=== PATIENT | female | born 1980 | race Caucasian/White ===

== ENCOUNTER 2020-07-01 23:12 | Emergency (ER) | payer OTHER, MEDICAID, SELFPAY ==
--- NOTE | ~2020-07-01 | CT_ITS ---
EXAMINATION: CT brain wo con DATE: 07/01/2020 23:42 INDICATION: Headache. Prior pituitary tumor resection. TECHNIQUE: Computed tomography (CT) of the head was performed without intravenous contrast. Sagittal and coronal reconstructions were performed. The mA was adjusted according to patient size. Iterative reconstruction technique was employed. The dose-length product was 605.33 mGy-cm. COMPARISON: None FINDINGS: No acute intracranial hemorrhage, acute infarction or abnormal extra axial fluid collection. Ventricl es are normal and symmetric. No mass/mass effect. Postoperative changes consistent with reported hist ory of prior pituitary tumor resection via transsphenoidal approach with resection of portion of the posterior nasal septum, bilateral posterior ethmoidal septations, anterior wall of the sphenoid sinus and floor of the sella turcica with fat packing at the posterior aspect of the sphenoid sinus. There is mucosal thickening in the sphenoid, ethmoid and maxillary sinuses, left greater than right. The o rbits and mastoid air cells are normal. IMPRESSION: 1. No acute intracranial process. 2. Postoperative changes consistent with prior transsphenoidal pituitary surgery for reported pituita ry tumor resection. Reviewed, dictated and finalized at location [facility] IMPRESSION: 1. No acute intracranial process. 2. Postoperative changes consistent with prior transsphenoidal pituitary surger y for reported pituitary tumor resection.
--- NOTE | ~2020-07-01 | XR_ITS ---
EXAMINATION: XR chest 2V DATE: 07/01/2020 23:54 INDICATION: Chest pain TECHNIQUE: PA and lateral views of the chest were obtained. COMPARISON: None FINDINGS: The lungs are clear with no focal airspace opacities, pulmonary edema, pleural effusion or pneumothor ax. The cardiomediastinal silhouette is normal. Cholecystectomy clips in the right upper quadrant. Mi ld thoracic spondylosis. IMPRESSION: 1. No acute cardiopulmonary disease. Reviewed, dictated and finalized at location [facility]
[2020-07-01 23:13] VITALS: BP 122/87; PULSE 112; RESP 17; O2SAT 97
--- NOTE | 2020-07-01 23:17 | ED.CHESTPAIN ---
HPI - Chest Pain General Chief Complaint: Chest Pain Stated Complaint: chest pain Time Seen by Provider: 07/01/20 23:17 Source: patient and EMS Mode of arrival: EMS Limitations: no limitations History of Present Illness HPI narrative: Patient is a 39-year-old female with a history of seizure disorder, pituitary resection, hypothyroidism, who presents for evaluation of chest pain. Patient states that she has been drinking hard alcohol, beer, wine this evening, was dancing in her living room, when she laid down to rest and suddenly felt acute onset chest tightness. Pain was over the center of her chest without radiation to the back, shoulders, jaw. Patient currently has associated headache and some mild nausea. She states her chest pain has been constant. She states it improves when she presses on her chest. No change with positioning. No associated cough or shortness of breath. No recent fever, chills or illnesses. Patient takes oral estrogen replacement since she had a history of pituitary resection. She denies any current vision changes. No history of DVT. Patient states she started to feel very panic which made her anxiety increased. She does have a history of anxiety. Patient's fianc? called EMS to bring her to the emergency department, she was noted to have a glucose of 40 and was given dextrose replacement. Repeat glucose at this facility is 67. Related Data Allergies Allergy/AdvReac Type Severity Reaction Status Date / Time No Known Allergies Allergy Unverified 12/30/18 04:51 Review of Systems Review of Systems: Narrative: CONSTITUTIONAL: Denies fever, chills, or sweats. EYES: Denies visual changes, redness, or discharge. ENT: Denies rhinorrhea, congestion, sore throat, or otalgia. CARDIOVASCULAR: Reports chest pain without palpitations or edema RESPIRATORY: Denies cough or dyspnea. GASTROINTESTINAL: Denies abdominal pain, nausea without vomiting GENITOURINARY: Denies dysuria or hematuria. SKIN: Denies rash or itching. MUSCULOSKELETAL: Denies back pain, joint pain, or myalgia. NEUROLOGIC: Headache without numbness or weakness PMF Past Medical History Medical History Anxiety Depression Hypertension Hypothyroidism Migraine Seizure Social History Social History (Updated 07/01/20 @ 23:32 by Mary Azevedo MD) Smoking status: Current every day smoker Alcohol intake: current Substance use: never Living arrangements: with family Gender identity (if verbalized by the patient): Female Exam Narrative: Exam Narrative: GENERAL: Awake, alert, conversant, tearful HEAD: Normocephalic, atraumatic. EYES: PERRLA and EOMI. ENT: Nares clear, no rhinorrhea or epistaxis. Mucous membranes moist. NECK: Supple. CHEST: No respiratory distress, breathing even and non labored, no chest wall tenderness HEART: Regular rate, sinus rhythm, no murmur ABDOMEN:Non distended, non tender EXTREMITIES: Normal range of motion. No edema. SKIN: Warm, dry, no rash. NEURO:No focal deficits. Alert and oriented x3 Psych: Reports anxiety Course Vital Signs Vital signs: Vital Signs Pulse Rate 112 H 07/01/20 23:13 Respiratory Rate 17 07/01/20 23:13 Blood Pressure 122/87 07/01/20 23:13 Pulse Oximetry 97 07/01/20 23:13 Pulse Rate 84 07/02/20 02:32 Respiratory Rate 13 07/02/20 02:32 Blood Pressure 111/83 07/02/20 02:32 Pulse Oximetry 98 07/02/20 02:32 MDM - Chest Pain MDM Narrative Medical decision making narrative: Patient presented for the evaluation of chest pain, headache, general malaise after drinking alcohol this evening. Patient's EKG and labs are without significant high risk changes. Cardiac risk factors reviewed. Patient is felt low risk for ACS and reasonable for further risk stratification testing as an outpatient. Patient has no signs or symptoms of adrenal crisis or adrenal insufficiency. As far as the patient's chest pain, th
[2020-07-01 23:19] LABS: Glucose Point of Care 67 (65-105)
--- NOTE | 2020-07-01 23:19 | ECG_ITS ---
Measurements Intervals [place] Rate: 103 P: 63 WA: 163 QRS: 42 QRSD: 90 T: 64 QT: 348 QTc: 456 Interpretive Statements SINUS TACHYCARDIA POSSIBLE LEFT ATRIAL ENLARGEMENT INCOMPLETE RIGHT BUNDLE BRANCH BLOCK BORDERLINE ECG Electronically Signed On 07-02-2020 8:42:33 CLIENT SERVICES ASSOCIATE by Dominick Dinh D.O.
[2020-07-01] MEDS: ONDANSETRON INJ 4 MG/2 ML VIAL IV PUSH (23:31)
[2020-07-01] MEDS: ASPIRIN 81 MG CHEWABLE TABLET 324 MG PO (23:32)
[2020-07-01] MEDS: MORPHINE SULFATE (*CRX) 2 MG/ML INJ IV PUSH (23:32)
[2020-07-01 23:34] LABS: Basophils Absolute Auto 0.1 K/mm3 (0.0-0.1); Basophils Percent Auto 0.8 % (0.2-1.2); Eosinophils Absolute Auto 0.2 K/mm3 (0-0.3); Eosinophils Percent Auto 2.3 % (0-4.4); Hematocrit 38.3 % (37.0-47.0); Hemoglobin 12.6 g/dL (12.0-15.0); Immature Granulocyte Absolute 0.04 K/mm3 (0.00-0.031); Immature Granulocyte Percent A 0.4 % (0-0.5); Lymphocytes Absolute Auto 3.37 K/mm3 (0.9-3.2); Lymphocytes Percent Auto 33.1 % (18.3-44.2); Mean Corpuscular HGB Conc 32.9 g/dl (32-36); Mean Corpuscular Hemoglobin 31.5 pg (26-34); Mean Corpuscular Volume 95.8 fl (80-100); Mean Platelet Volume 10.4 fl (7.4-10.4); Monocytes Absolute Auto 0.8 K/mm3 (0.1-0.6); Monocytes Percent Auto 7.9 % (2.6-8.5); Neutrophils Absolute Auto 5.7 K/mm3 (1.3-6.7); Neutrophils Percent Auto 55.5 % (45.5-73.1); Platelet Count Result 262 k/mm3 (150-375); Red Cell Distribution Width 12.9 % (11.5-14.5); White Blood Count 10.2 K/mm3 (4.5-10.0)
[2020-07-01 23:37] VITALS: PULSE 111; O2SAT 97
[2020-07-01 23:49] LABS: INR 0.8
[2020-07-01 23:51] LABS: Anion Gap 10 mmol/L (8-16); Blood Urea Nitrogen 10 mg/dL (7-17); Calcium 8.5 mg/dL (8.4-10.2); Carbon Dioxide 22 mmol/L (22-30); Chloride 113 mmol/L (98-107); Estimated CRCL calculation 70 ml/min; Estimated Glomerular Filt Rate > 60; Glucose 66 mg/dL (65-105); Potassium 3.7 mmol/L (3.4-5.0); Sodium 145 mmol/L (137-145)
[2020-07-01 23:54] LABS: D Dimer 0.27 ug/mL (<0.48)
[2020-07-02 00:03] LABS: Troponin I < 0.012 ng/mL (0.000-0.034)
[2020-07-02 00:12] LABS: Ethanol 217 mg/dL (<10)
[2020-07-02 00:22] VITALS: BP 141/101; PULSE 84; RESP 19; O2SAT 99
[2020-07-02] MEDS: KETOROLAC 30 MG/ML VIAL (*BKC) IV PUSH (01:06)
[2020-07-02 01:30] VITALS: BP 109/79; PULSE 82; RESP 16; O2SAT 97
[2020-07-02 02:32] VITALS: BP 111/83; PULSE 84; RESP 13; O2SAT 98
[2020-07-02 02:49] LABS: Troponin I < 0.012 ng/mL (0.000-0.034)
[2020-07-02 03:03] VITALS: BP 111/83; PULSE 75; RESP 17; TEMP 36.6; O2SAT 96
== END 2020-07-02 03:05 | disposition home or self-care (01) ==
PROVIDERS: Emergency Provider Emergency Medicine; PCP Family Medicine
DX: R07.89 Other chest pain (principal); G40.909 Epilepsy, unspecified, not intractable, without status epilepticus; E03.9 Hypothyroidism, unspecified; I10 Essential (primary) hypertension; E89.3 Postprocedural hypopituitarism; F17.200 Nicotine dependence, unspecified, uncomplicated
CPT/HCPCS: 36415; 70450; 71046; 80048; 80307; 82948; 84484; 85025; 85380; 85610; 85730; 93005; 96374; 96375; 99284; A9270; J1885; J2270; J2405

== ENCOUNTER 2020-08-07 10:45 | Emergency (ER) | payer OTHER, MEDICAID, SELFPAY ==
[2020-08-07 11:07] VITALS: BP 144/90; PULSE 86; RESP 18; TEMP 36.4; O2SAT 98
--- NOTE | 2020-08-07 12:19 | ED.WOUNDLAC ---
HPI - Wound/Laceration General Chief Complaint: Wound/Laceration Stated Complaint: thumb slice by broken glass Time Seen by Provider: 08/07/20 12:06 History of Present Illness HPI narrative: 39 yo female w/ h/o adrenal insufficiency presents to the ED for a hand laceration. She was washing dishes when she broken a glass and sustained a laceration the dorsal base of the right thumb. Mild pain. Additionally she reports feeling dizzy and somewhat shaky. Related Data Allergies Allergy/AdvReac Type Severity Reaction Status Date / Time No Known Allergies Allergy Unverified 07/04/20 10:07 Review of Systems Review of Systems: All systems reviewed & are unremarkable except as noted in HPI and below Constitutional: Constitutional: Denies fever(s) ENT: Reports dizziness Respiratory: Respiratory: Denies dyspnea Gastrointestinal: Gastrointestinal: Denies nausea Neurologic: Denies numbness and Denies weakness Psychiatric: Psychiatric: Reports anxiety PMFSH Past Medical History Medical History Anxiety Depression Hypertension Hypothyroidism Migraine Seizure Social History Social History Smoking status: Current every day smoker Alcohol intake: current Substance use: never Gender identity (if verbalized by the patient): Female Exam Const: General: healthy appearing, no acute distress and alert Orientation/consciousness: patient oriented x3 HENMT: Head: normal to inspection Resp: Effort & Inspection: normal respiratory effort Auscultation: clear to auscultation bilaterally Cardio: Rate: regular rate Rhythm: regular rhythm Other: 2 + right radial Neuro: General: patient oriented x3, moves all extremities, no focal motor deficits and CN's II-XI intact bilaterally Speech: normal speech Extrem: Other: 4 cm laceration to the dorsim of the right hand near the base of the thumb. No foreign body Psych: Affect: Anxious affect present Course Vital Signs Vital signs: Vital Signs Temperature 36.4 C 08/07/20 11:07 Pulse Rate 86 08/07/20 11:07 Respiratory Rate 18 08/07/20 11:07 Blood Pressure 144/90 H 08/07/20 11:07 Pulse Oximetry 98 08/07/20 11:07 Temperature 36.4 C 08/07/20 11:07 Pulse Rate 86 08/07/20 11:07 Respiratory Rate 18 08/07/20 11:07 Blood Pressure 144/90 H 08/07/20 11:07 Pulse Oximetry 98 08/07/20 11:07 Procedures Laceration Laceration 1: Date: 08/07/20 Time: 20:15 Site: hand Side (If applicable): right Size (cm): 4 Description: linear Depth: simple, single layer Amount of anesthesia used (mL): 3 Pre-repair: wound explored and irrigated extensively ====== Skin Level ====== Skin layer closed with: nylon Size (cm): 5-0 Number of sutures: 4 Technique: horizontal mattress ====== Subcutaneous Layer ====== ====== Muscle Layer ====== ====== Tendon Layer ====== Discharge Plan Discharge Clinical Impression: Hand laceration Qualifiers: Encounter type: initial encounter Foreign body presence: without foreign body Laterality: right Qualified Code(s): S61.411A - Laceration without foreign body of right hand, initial encounter Patient Disposition: Home, Self-Care Condition: Stable Instructions: Laceration (ED) Additional Instructions: Follow-up for suture removal in 10-14 days Follow-up/Referrals: Jatinder,MD Yuriy [Primary Care Provider] -
== END 2020-08-07 13:59 | disposition home or self-care (01) ==
PROVIDERS: Emergency Provider Emergency Medicine; PCP Family Medicine
DX: S61.011A Laceration without foreign body of right thumb without damage to nail, initial encounter (principal); F17.200 Nicotine dependence, unspecified, uncomplicated; W25.XXXA Contact with sharp glass, initial encounter; Y93.G1 Activity, food preparation and clean up
CPT/HCPCS: 12002; 99282

== ENCOUNTER 2021-09-20 20:54 | Emergency (ER) | payer OTHER, MEDICAID, SELFPAY ==
[2021-09-20 20:55] VITALS: BP 182/129; PULSE 117; RESP 20; TEMP 36.2; O2SAT 97
--- NOTE | 2021-09-20 21:19 | PC.NURSE ---
Per VEHICLE BODY MAKERESTRELLITA Walker, pt requires sitter d/t SI and overdose prior to arrival.
--- NOTE | 2021-09-20 21:20 | ED.GENADULT ---
HPI - General Adult General Chief complaint: Overdose Stated complaint: overdose; took 12 25mg Benadryl Time Seen by Provider: 09/20/21 21:07 History of Present Illness HPI narrative: 40-year-old female presents to the emergency department for evaluation after an intentional overdose of Benadryl. Patient does have a previous psych history for which she has been hospitalized for. Patient states she does not have a current psychiatrist that she follows up with. Patient does admit to drinking alcohol today. Patient states that she did take 12 x 25 mg p.o. Benadryl with the intent to kill herself. Patient told nursing triage that she took these with intent to hurt herself. Patient had told her fianc? that she did this to kill herself. Patient denies any chest pain or shortness of breath. Patient denies any nausea vomiting or diarrhea. Patient does have previous history of adrenal insufficiency. Related Data Home Medications Medication Instructions Recorded Confirmed atorvastatin 09/20/21 bupropion HCl PO 09/20/21 hydrocortisone 09/20/21 losartan 09/20/21 Allergies Allergy/AdvReac Type Severity Reaction Status Date / Time adhesive tape Allergy Blister Verified 09/20/21 21:04 lorazepam [From Ativan] Allergy Hives Verified 09/20/21 21:04 Review of Systems Review of Systems: CONSTITUTIONAL: Denies fever, chills, or sweats. EYES: Denies visual changes, redness, or discharge. ENT: Denies rhinorrhea, congestion, sore throat, or otalgia. CARDIOVASCULAR: Denies chest pain, palpitations, or edema. RESPIRATORY: Denies cough or dyspnea. GASTROINTESTINAL: Denies abdominal pain, nausea, vomiting, or diarrhea. GENITOURINARY: Denies dysuria or hematuria. SKIN: Denies rash or itching. MUSCULOSKELETAL: Denies back pain, joint pain, or myalgia. NEUROLOGIC: Denies headache, numbness, or weakness. PSYCHIATRIC: Does report history of depression PMFSH Past Medical History Medical History Anxiety Depression Hypertension Hypothyroidism Migraine Seizure Social History Social History Smoking status: Current every day smoker Alcohol intake: current Substance use: never Gender identity (if verbalized by the patient): Female Exam Narrative: APPEARANCE: Intoxicated HEAD: normocephalic, atraumatic. EYES: PERRLA/EOMI, conjunctivae clear. NOSE: Normal no drainage THROAT: Pharynx clear, no exudate. NECK: Supple. No adenopathy, no masses. RESPIRATORY: Airway patent, respirations nonlabored. Clear to auscultation bilaterally, no rales, rhonchi, wheezing. CARDIOVASCULAR: Regular rate and rhythm without murmurs rubs or gallops. ABDOMINAL: Soft, nontender, nondistended, normal bowel sounds MUSCULOSKELETAL: Moves all extremities. Strength/ROM intact, No edema, No calf tenderness. NEURO: Alert. Cranial nerves II through XII intact. Good gait. Good coordination SKIN: Warm, dry. Normal Color PSYCHIATRIC: Labile affect. Course Course Emergency Course: Poison control wanted the patient observed for at least 4 hours after ingestion. Patient's blood alcohol was significantly elevated so she had a prolonged observation in the emergency department prior to medical clearance. Patient's blood alcohol is below 80. Patient's counselor was consulted. [facility] counselor is intending to place the patient and inpatient psychiatric treatment. Reevaluation(s) Reevaluation #1: Patient is medically cleared to be evaluated by the crisis counselor. Patient is medically cleared to be discharged from the emergency department and is cleared for inpatient psychiatric placement. Vital Signs Vital signs: Vital Signs Temperature 97.2 F L 09/20/21 20:55 Pulse Rate 117 H 09/20/21 20:55 Respiratory Rate 20 09/20/21 20:55 Blood Pressure 182/129 H 09/20/21 20:55 Pulse Oximetry 97 09/20/21 20:55 Temperature 97.2 F L 09/20/21 20:55
--- NOTE | 2021-09-20 21:26 | PC.NURSE ---
all pt belongings taken by cici out of ED at this time.
[2021-09-20 21:28] VITALS: RESP 12
[2021-09-20 21:38] LABS: Add Urine Microscopic? NO; Appearance Urine Clear (Clear); Bilirubin Urine Negative (Negative); Blood Urine Negative (Negative); Color Urine Colorless (Yellow); Glucose Urine UA Negative (Negative); Ketones Urine Negative (Negative); Leukocyte Esterase Ur Negative LEU/UL (Negative); Nitrate Urine Negative (Negative); Protein Urine Negative (Negative); Specific Grav Ur 1.002 (1.001-1.035); Urobilinogen Urine Negative mg/dL (<2.0)
[2021-09-20 21:39] LABS: Basophils Percent Auto 0.3 % (0.2-1.2); Eosinophils Percent Auto 0.1 % (0-4.4); Hematocrit 43.9 % (37.0-47.0); Hemoglobin 14.3 g/dL (12.0-15.0); Immature Granulocyte Absolute 0.07 K/mm3 (0.00-0.031); Immature Granulocyte Percent A 0.6 % (0-0.5); Lymphocytes Percent Auto 11.3 % (18.3-44.2); Mean Corpuscular HGB Conc 32.6 g/dl (32-36); Mean Corpuscular Hemoglobin 30.6 pg (26-34); Mean Platelet Volume 9.8 fl (7.4-10.4); Monocytes Absolute Auto 0.2 K/mm3 (0.1-0.6); Monocytes Percent Auto 1.9 % (2.6-8.5); Neutrophils Absolute Auto 9.9 K/mm3 (1.3-6.7); Neutrophils Percent Auto 85.8 % (45.5-73.1); Platelet Count Result 340 k/mm3 (150-375); Red Blood Count 4.67 M/mm3 (4.2-5.4); Red Cell Distribution Width 13.8 % (11.5-14.5); White Blood Count 11.5 K/mm3 (4.5-10.0)
--- NOTE | 2021-09-20 21:40 | PC.NURSE ---
spoke with debbi from poison control at this time. per debbi diphenhydramine peaks in 2-3 hours and has a half life of 5-9 hours. toxic dose for this pt would be 590 mg and from the amount pt reports pt below toxic dose. possible side effects pt could experience: lethargy, dry mouth, paradoxical agitation, tachycardia. per poison control for agitation benzos.
[2021-09-20 21:45] LABS: Alanine Aminotransferase 37 U/L (4-35); Albumin Level 4.7 g/dL (3.5-5.1); Alkaline Phosphatase 80 U/L (38-126); Anion Gap 13 mmol/L (8-16); Aspartate Amino Transferase 32 U/L (14-36); Bilirubin,Total 0.3 mg/dL (0.2-1.3); Blood Urea Nitrogen 12 mg/dL (7-17); Calcium 9.1 mg/dL (8.4-10.2); Carbon Dioxide 22 mmol/L (22-30); Chloride 109 mmol/L (98-107); Estimated CRCL calculation 50 ml/min; Estimated Glomerular Filt Rate 55; Glucose 143 mg/dL (65-110); Potassium 4.2 mmol/L (3.4-5.0); Sodium 144 mmol/L (137-145)
[2021-09-20 21:52] LABS: Amphetamine Screen Urine Negative (Negative); Barbiturate Screen Urine Negative (Negative); Benzodiazepines Screen Urine Negative (Negative); Cannabinoid Screen Urine Positive (Negative); Cocaine Screen Urine Negative (Negative); Methadone Screen Urine Negative (Negative); Opiate Screen Urine Negative (Negative); Phencyclidine Screen Urine Negative (Negative)
[2021-09-20 21:55] LABS: Acetaminophen < 10 ug/mL (10-30); Ethanol 235 mg/dL (<10); Salicylate < 1.0 mg/dL (2-20)
[2021-09-20 22:13] LABS: SARS-CoV-2 RNA PCR Negative
[2021-09-20 23:06] VITALS: BP 132/100; PULSE 90; RESP 13; O2SAT 98
[2021-09-20 23:51] VITALS: BP 129/84; PULSE 87; RESP 16; O2SAT 97
[2021-09-21 01:33] VITALS: BP 126/77; PULSE 106; RESP 18; O2SAT 96
[2021-09-21 02:29] LABS: Ethanol 146 mg/dL (<10)
[2021-09-21 02:45] VITALS: BP 116/84; PULSE 89; RESP 18; O2SAT 97
--- NOTE | 2021-09-21 02:54 | PC.NURSE ---
Per ED MD Leal, pt does not need to be continuously monitored. Will redraw ETOH at 0515 per verbal order from ED MD Leal. Moved from ED H3 to ED 15. Sitter remains at bedside. Pt currently wearing green paper scrubs. Will medically clear once ETOH level 80 or less.
[2021-09-21 05:21] VITALS: BP 147/87; PULSE 63; RESP 19; O2SAT 98
--- NOTE | 2021-09-21 05:30 | PC.NURSE ---
Poison Control called ED to get update on pt's condition - provided by this RN. case closed at this time.
[2021-09-21 05:36] LABS: Ethanol 83 mg/dL (<10)
--- NOTE | 2021-09-21 05:50 | PC.NURSE ---
Per EDP Dr. Leal pt is medically cleared at this time.
--- NOTE | 2021-09-21 05:53 | PC.NURSE ---
[facility] contacted and will be out to evaluate pt.
--- NOTE | 2021-09-21 07:21 | PC.NURSE ---
[facility] called and they said they will have to call back later if they have a bed.
[2021-09-21 07:27] LABS: Ethanol 38 mg/dL (<10)
--- NOTE | 2021-09-21 07:53 | PC.NURSE ---
community organizer faxed pt facesheet to [facility]. admin secretary faxed at [phone]
[2021-09-21 08:00] VITALS: BP 142/107; PULSE 84; RESP 16; O2SAT 97
--- NOTE | 2021-09-21 08:04 | PC.NURSE ---
[facility] made contact with community engagement manager to fax pt facesheet. community engagement manager faxed at [phone]
[2021-09-21] MEDS: HYDROCORTISONE 10 MG TABLET PO (08:17)
[2021-09-21] MEDS: FLUDROCORTISONE ACETATE 0.1 MG TABLET PO (08:17)
--- NOTE | 2021-09-21 09:10 | PC.NURSE ---
@ [phone] dip unit operator faxed pt chart to [facility]
[2021-09-21 14:09] VITALS: BP 149/109; PULSE 94; RESP 17; TEMP 36.5; O2SAT 98
--- NOTE | 2021-09-21 14:13 | PC.NURSE ---
made contact with [place] [facility] to transfer pt to [facility]. eta [phone]
--- NOTE | 2021-09-21 15:48 | PC.NURSE ---
kelly has arrived and is aware that pt is going to [facility]
== END 2021-09-21 16:00 ==
PROVIDERS: Emergency Provider Emergency Medicine; PCP Family Medicine
DX: T45.0X2A Poisoning by antiallergic and antiemetic drugs, intentional self-harm, initial encounter (principal); T51.92XA Toxic effect of unspecified alcohol, intentional self-harm, initial encounter; Z20.822 Contact with and (suspected) exposure to COVID-19; F41.9 Anxiety disorder, unspecified; F32.A Depression, unspecified; I10 Essential (primary) hypertension; E03.9 Hypothyroidism, unspecified; F17.200 Nicotine dependence, unspecified, uncomplicated
CPT/HCPCS: 36415; 80053; 80307; 81003; 81025; 84443; 85025; 99285; A9270; C9803; U0003; U0005

== ENCOUNTER 2024-03-26 06:49 | Observation (INO) | payer OTHER, MEDICAID, SELFPAY ==
[2024-03-26] VITALS (14 sets, daily range): BP systolic 119–175; BP diastolic 62–92; PULSE 60–107; RESP 12–19; TEMP 36.6–37.1; O2SAT 98–100; BMI 23.6
--- NOTE | 2024-03-26 | ECHO_ITS ---
Patient Info Name: Ana Maria Alvarez Age: 43 years : 1980 Gender: Female Ht: 68 in Wt: 155 lbs BSA: 1.84 m2 HR: 61 bpm BP: 136 / 87 mmHg Heart Rhythm: Sinus Rhythm Technical Quality: Good Exam Date: 03/26/2024 3:09 PM Exam Location: Echo Lab Patient Status: Outpatient Admit Date: 03/26/2024 Staff Ordering Physician: Rhona Gilmore MD Fretted Instrument Maker Hand: Jocelyn Genao RDCS Attending Provider: Armando Roa MD Referring Physician: Deirdre KIRKLAND; Exam Type: CA echo dop bubble study w con Study Info Indications - TIA Complete two-dimentional, color flow and Doppler transthoracic echocardiogram is performed with agitated saline and with contrast to opacify the left ventricle and to improve the delineation of the left ventricle endocardial borders. Contrast/Agitated Saline Contrast/Ag. Saline: Definity Amount: 2.00 ml Administered By: Jocelyn Genao RDCS Existing IV Access: Yes IV Access Condition: patent with no signs of infiltration Contrast/Ag. Saline: Agitated Saline Amount: 20.00 ml Administered By: Radha Mejia RDCS Existing IV Access: Yes IV Access Condition: patent with no signs of infiltration Summary 1. Trivial mitral regurgitation. 2. Otherwise unremarkable 2D/Doppler echocardiogram. 3. Saline contrast injection demonstrates no intracardiac shunt. Left Ventricle Left ventricular chamber dimension is normal. Left ventricular systolic function is normal, estimated at 65-70%. The left ventricular diastolic function is normal. Right Ventricle Right ventricular chamber dimension is normal. Left Atria Left atrial chamber dimension is normal. Right Atria Right atrial chamber dimension is normal. Atrial Septum Intact interatrial septum visualized by agitated saline imaging. Aortic Valve The aortic valve is normal. Pulmonic Valve The pulmonic valve is normal. Mitral Valve The mitral valve has normal leaflets. There is trace mitral valve regurgitation. Tricuspid Valve The tricuspid valve leaflets are normal. Pericardium/Pleural The pericardium appears normal. Aorta The aortic root size at the sinus of Valsalva is normal. Left Ventricular Outflow Tract Name Value Normal LVOT 2D LVOT Diameter 2.0 cm LVOT Doppler LVOT Peak Gradient 5 mmHg LVOT Mean Gradient 2 mmHg LVOT VTI 24 cm LVOT VTI/AV VTI Ratio 0.9 LVOT Stroke Volume 80 ml LVOT CO 4.8 l/min LVOT CI 2.6 l/min/m2 Pulmonic Valve Name Value Normal RVOT Doppler RVOT Peak Gradient 3 mmHg PV Doppler PV Peak Gradient 5 mmHg M
--- NOTE | ~2024-03-26 | XR_ITS ---
EXAMINATION: XR chest 1V DATE: 03/26/2024 07:12 INDICATION: Cerebrovascular accident. TECHNIQUE: A single frontal view of the chest was obtained. COMPARISON: Chest single view 02/09/2024 FINDINGS: There is no pneumonia, pleural effusion, or pneumothorax. The heart size is normal. Surgica l clips in the right upper quadrant are likely from cholecystectomy. IMPRESSION: 1. No acute cardiopulmonary disease. Reviewed, dictated and finalized at location A.
--- NOTE | ~2024-03-26 | MR_ITS ---
EXAMINATION: MR brain/brain stem wo con DATE: 03/26/2024 13:58 INDICATION: Transient ischemic attack. TECHNIQUE: Magnetic resonance imaging (MRI) of the brain and brainstem was performed without intraven ous contrast. COMPARISON: Head CT 03/26/2024 FINDINGS: There is no intracranial hemorrhage, acute infarction, or abnormal intracranial mass lesion . There are 4 foci of increased T2-weighted signal intensity in the cerebral white matter, which is n ormal for age. The ventricles are normal in size. There is extensive mucosal thickening in the parana regino sinuses. The orbits are normal. The mastoid air cells are normal. IMPRESSION: 1. Normal brain. Reviewed, dictated and finalized at location A. IMPRESSION: 1. Normal brain.
--- NOTE | ~2024-03-26 | CT_ITS ---
EXAMINATION: CT brain wo con DATE: 03/26/2024 07:12 INDICATION: Slurred speech. TECHNIQUE: Computed tomography (CT) of the head was performed without intravenous contrast. The mA wa s adjusted according to patient size. Iterative reconstruction technique was employed. The dose-lengt h product was 908.00 mGy-cm. COMPARISON: Head CT 07/01/2020 FINDINGS: There is no intracranial hemorrhage, acute infarction, or abnormal intracranial mass lesion . The ventricles are normal in size. The orbits are normal. There is extensive mucosal thickening in the paranasal sinuses. There are surgical changes of the paranasal sinuses and sella. The mastoid air cells are normal. IMPRESSION: 1. Normal brain. Reviewed, dictated and finalized at location A. IMPRESSION: 1. Normal brain.
--- NOTE | ~2024-03-26 | CT_ITS ---
CTA brain carotid Ordering provider: Rhona Gilmore MD History: . TIA . Comparison: None. Technique: CT angiogram head and neck was performed following timed intravenous injection of contrast . Thin slice axial images and reformatted coronal images were obtained. Three dimensional reformatted images of the brain were also obtained using a [employer] workstation. The dose-length product was 1006 .1 no mass is noted which 1 cough, the mGy-cm. 100 mL Omnipaque 350 was given IV. FINDINGS: HEAD: --ANTERIOR AND MIDDLE CEREBRAL ARTERIES AND BRANCHES: Normal caliber and contour. --INTERNAL CAROTID ARTERIES: Normal caliber and contour. --BASILAR ARTERY AND BRANCHES: Normal caliber and contour. No atheromatous disease. --POSTERIOR CEREBRAL ARTERIES: Normal caliber and contour --POSTERIOR COMMUNICATING ARTERIES: Not visualized which is probably related to congenital absence or small size. --ANEURYSM: None visualized. --BRAIN: Please refer to report of CT head performed the same day. --BONES AND SUPERFICIAL SOFT TISSUES: Please refer to report of CT head performed the same day. --PARANASAL SINUSES AND MASTOIDS: Please refer to report of CT head done the same day. NECK: --RIGHT CERVICAL CAROTID SYSTEM: Normal caliber and contour. Percent stenosis per NASCET criteria is 0%. No carotid dissection. Otherwise, no significant atheromatous disease or stenosis of the cervica l carotid system. --LEFT CERVICAL CAROTID SYSTEM: Normal caliber and contour. Percent stenosis per NASCET criteria is 0%. No carotid dissection. Otherwise, no significant atheromatous disease or stenosis of the cervical carotid system. --VERTEBRAL ARTERIES: Normal caliber and contour. --VISUALIZED AORTIC ARCH AND BRANCHING VESSELS: Normal caliber and contour. No significant atheromato us disease. --SOFT TISSUES: Normal. --CERVICAL SPINE: Normal. IMPRESSION: 1. Normal CTA head and neck. Percent stenosis per NASCET criteria is 0%. Reviewed, dictated and finalized at location A.
--- NOTE | 2024-03-26 06:54 | ECG_ITS ---
Test Date: 2024-03-26 07:18:27 Measurements Intervals [place] Rate: 78 P: 46 NV: 153 QRS: 26 QRSD: 94 T: 54 QT: 400 QTc: 456 Interpretive Statements SINUS RHYTHM NORMAL ELECTROCARDIOGRAM No previous ECG available for comparison Electronically Signed On 03-26-2024 12:30:52 CDT by Slaas Miramontes M.D.
[2024-03-26 07:21] LABS: Glucose Point of Care 108 mg/dl (65-105)
--- NOTE | 2024-03-26 07:35 | ED.NEUROSD ---
HPI - Neuro Symptoms/Deficit General Chief Complaint: Neuro Symptoms/Deficit Stated Complaint: slurred speech Time Seen by Provider: 03/26/24 07:26 History of Present Illness HPI Narrative: Pt presents after having spell of having difficulty coming up with words. Pt felt normal when she went to bed last night. Pt felt strange when she woke up at 0330 but got ready for work and came in. 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 Pt has had a REYNA for a few days. Pt also noted bight prism forms when trying to lood at computer screen. This and her speach difficlties have resolved. Pt still has the REYNA. Pt never had any weakness or numbness but has had some cramping in hands and feet. Related Data Home Medications Medication Instructions Recorded Confirmed atorvastatin 20 mg tablet 20 mg PO QHS 09/20/21 03/26/24 hydrocortisone 5 mg tablet 15 mg PO QAM 09/20/21 03/26/24 losartan 50 mg tablet 50 mg PO Q12H 09/20/21 03/26/24 hydrocortisone 5 mg tablet 5 mg PO QHS 09/21/21 03/26/24 bupropion HCl 150 mg 24 hr tablet, 150 mg PO QHS 03/26/24 03/26/24 extended release desmopressin 0.1 mg tablet 0.1 mg PO Q12H 03/26/24 03/26/24 dexamethasone sodium phosphate 4 4 mg IM ONCE PRN Allergic Reaction 03/26/24 03/26/24 mg/mL injection solution dextroamphetamine-amphetamine 20 See Rx Instructions .Route .COMPLEX 03/26/24 03/26/24 mg tablet estradiol 2 mg tablet 2 mg PO QAM 03/26/24 03/26/24 fludrocortisone 0.1 mg tablet 0.1 mg PO QAM 03/26/24 03/26/24 levothyroxine 88 mcg tablet 100 mcg PO QAM 03/26/24 03/26/24 lorazepam 0.5 mg tablet 0.5 mg PO TID PRN Anxiety 03/26/24 03/26/24 ondansetron 4 mg disintegrating 4 mg PO Q6H 03/26/24 03/26/24 tablet progesterone micronized 100 mg 100 mg PO QAM 03/26/24 03/26/24 capsule quetiapine 100 mg tablet 150 mg PO QHS 03/26/24 03/26/24 Allergies Allergy/AdvReac Type Severity Reaction Status Date / Time adhesive tape Allergy Blister Verified 03/26/24 07:18 chlorhexidine Allergy Hives Verified 03/26/24 07:18 prochlorperazine Allergy Unknown Verified 03/26/24 07:18 [From Compazine] Review of Systems Review of Systems: All systems reviewed & are unremarkable except as noted in HPI and below PMFSH Past Medical History Medical History Anxiety Depression Hypertension Hypothyroidism Migraine Seizure Social History Social History Smoking status: Current every day smoker Tobacco type: e-cigarettes/vaping Alcohol intake: current Substance use: never Do You Feel Safe in your Home?: Yes Lack of Transportation: No Lack of Food: Never True Current Housing: I Have Housing Concerned About Future Housing: No Difficulty Paying Gas/Electric Bills: No Difficulty Paying for Meds: No Currently Unemployed: No Education: Associate Degree Difficulty w/ Childcare or Family Care: No Living arrangements: with family Gender identity (if verbalized by the patient): Female Spiritual care concerns: No Exam Const: General: healthy appearing and no acute distress Nutritional Appearance: well nourished Orientation/consciousness: patient oriented x3 Limitations: no limitations HENMT: Head: normal to inspection Mouth: Yes Normal oral and palatal mucosa present Teeth and gingiva: dentition normal Throat: posterior oropharynx normal Eyes: Conjunctivae: conjunctivae normal Pupils: Equal, round and reactive pupils present EOM: EOMs intact bilaterally Direct Ophthalmoscopy: no photophobia Neck: Neck: normal visual inspection and no lymphadenopathy Resp: Effort & Inspection: normal respiratory effort Auscultation: clear to auscultation bilaterally Cardio: Rate: regular rate Rhythm: regular rhythm GI: Inspection: distended GI Palp: Yes Soft to palpation Auscultation: normal bowel sounds Rectal Exam: normal sphincter
[2024-03-26 07:42] LABS: Basophils Absolute Auto 0.1 K/mm3 (0.0-0.1); Basophils Percent Auto 0.8 % (0.2-1.2); Eosinophils Absolute Auto 0.2 K/mm3 (0-0.3); Eosinophils Percent Auto 1.7 % (0-4.4); Hematocrit 36.4 % (37.0-47.0); Hemoglobin 11.3 g/dL (12.0-15.0); Immature Granulocyte Absolute 0.03 K/mm3 (0.00-0.031); Immature Granulocyte Percent A 0.3 % (0-0.5); Lymphocytes Absolute Auto 1.58 K/mm3 (0.9-3.2); Lymphocytes Percent Auto 17.7 % (18.3-44.2); Mean Corpuscular Hemoglobin 29.5 pg (26-34); Mean Platelet Volume 10.2 fl (7.4-10.4); Monocytes Absolute Auto 0.5 K/mm3 (0.1-0.6); Monocytes Percent Auto 5.6 % (2.6-8.5); Neutrophils Absolute Auto 6.6 K/mm3 (1.3-6.7); Neutrophils Percent Auto 73.9 % (45.5-73.1); Platelet Count Result 233 k/mm3 (150-375); Red Blood Count 3.83 M/mm3 (4.2-5.4); Red Cell Distribution Width 13.2 % (11.5-14.5); White Blood Count 8.9 K/mm3 (4.5-10.0)
[2024-03-26 07:47] LABS: Alanine Aminotransferase 19 U/L (6-35); Albumin Level 3.6 g/dL (3.5-5.1); Alkaline Phosphatase 59 U/L (38-126); Anion Gap 9 mmol/L (4-12); Aspartate Amino Transferase 27 U/L (14-36); Bilirubin,Total 0.3 mg/dL (0.2-1.3); Blood Urea Nitrogen 13 mg/dL (7-17); Calcium 8.3 mg/dL (8.4-10.2); Carbon Dioxide 24 mmol/L (22-30); Chloride 106 mmol/L (98-107); Estimated CRCL calculation 71 ml/min; Estimated Glomerular Filt Rate > 60; Glucose 89 mg/dL (65-110); Potassium 3.7 mmol/L (3.4-5.0); Sodium 139 mmol/L (137-145)
[2024-03-26 07:57] LABS: INR 0.9; Prothrombin Time 12.4 Seconds (11.1-14.7)
[2024-03-26 07:58] LABS: Partial Thromboplastin Time 26.8 Seconds (22.3-36.8); Troponin I < 0.012 ng/mL (0.000-0.034)
[2024-03-26] MEDS: fentaNYL CITRATE INJ (*CRX) 100 MCG/2 ML VIAL 50 MCG IV PUSH (09:00)
[2024-03-26] MEDS: ASPIRIN 81 MG CHEWABLE TABLET 324 MG PO (09:56)
[2024-03-26 10:08] LABS: BEDSIDEPREGUCG Negative
--- NOTE | 2024-03-26 10:28 | ADMGEN ---
This patient, Ana Maria Alvarez, was admitted to Medical Room 249-01. Patient/family oriented to hospital policies and general routines including ID bracelet, bed and alarms, visiting hours, pain management, procedures, bathroom and other care routines, personal items, smoking policy, room service/diet, and visiting hours. Information on how to activate the Rapid Response Team has been discussed. Patient/Family are encouraged to report perceived risks to care and to ask questions if they do not understand what they are told or what they should do.
--- NOTE | 2024-03-26 11:46 | PM.IMHP ---
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 Patient was arriving to work at 5:15 a.m. this morning when she developed symptoms including headache, confusion and slurred speech. Patient called her spouse and her spouse came to her work to take her to the emergency department because she was not acting right. By the time of arrival to the emergency resolved. Patient was concerned she may have accidentally taken her nighttime medications which include sedating medicines such quetiapine and lorazepam. checked medications at home and only the morning medications were gone for today. Patient reports that she has a lot of significant medical concerns including recurrent hand and feet spasming that results spontaneous bruising, spontaneous rashes that appear repeatedly and she has undergone 22 surgeries but cannot find her list surgeries. workup in the emergency department negative CT scan of the head normal chest x-ray normal labs. Patient admitted for TIA/stroke workup. Slight decrease in hemoglobin noted from prior results, iron studies and B12/ folate were ordered. Iron % saturation was slightly low so oral iron was initiated. MRI, echocardiogram, lipid panel and hemoglobin A1c were ordered. Neurology was consulted. Once neurology saw patient, EEG was ordered. She was initially given Dilaudid for headache but it did not help her symptoms at all so this was discontinued and patient later received IV migraine cocktail including ketorolac, Benadryl and metoclopramide. Approximately 10 minutes after metoclopramide had been administered via slow IV push patient had severe dystonic reaction with severe anxiety, muscle spasms and shaking. Rapid response was called. She did not lose consciousness or obvious seizure symptoms. Patient received IV lorazepam and was able to rest more comfortably. Review of Systems Review of Systems: All systems reviewed & are unremarkable except as noted in HPI and below PMFSH Past Medical History Medical History Anxiety Depression Hypertension Hypothyroidism Migraine Seizure Social History Social History Smoking status: Current every day smoker Tobacco type: e-cigarettes/vaping Alcohol intake: current Substance use: never Do You Feel Safe in your Home?: Yes Lack of Transportation: No Lack of Food: Never True Current Housing: I Have Housing Concerned About Future Housing: No Difficulty Paying Gas/Electric Bills: No Difficulty Paying for Meds: No Currently Unemployed: No Education: Associate Degree Difficulty w/ Childcare or Family Care: No Living arrangements: with family Gender identity (if verbalized by the patient): Female Spiritual care concerns: No Meds Home Medications and Allergies Home Medications Medication Instructions Recorded Confirmed Type atorvastatin 20 mg tablet 20 mg PO QHS 09/20/21 03/26/24 History hydrocortisone 5 mg tablet 15 mg PO QAM 09/20/21 03/26/24 History losartan 50 mg tablet 50 mg PO Q12H 09/20/21 03/26/24 History hydrocortisone 5 mg tablet 5 mg PO QHS 09/21/21 03/26/24 History bupropion HCl 150 mg 24 hr tablet, 150 mg PO QHS 03/26/24 03/26/24 History extended release desmopressin 0.1 mg tablet 0.1 mg PO Q12H 03/26/24 03/26/24 History dexamethasone sodium phosphate 4 4 mg IM ONCE PRN Allergic Reaction 03/26/24 03/26/24 History mg/mL injection solution dextroamphetamine-amphetamine 20 See Rx Instructions .Route .COMPLEX 03/26/24 03/26/24 History mg tablet estr
[2024-03-26] MEDS: HYDROmorphone HCL INJ (*CRX) 1 MG/ML SYR 0.5 MG IV PUSH (12:31)
[2024-03-26 13:13] LABS: Cholesterol 141 mg/dL (0-200); HDL Direct 55 mg/dL; Triglycerides 169 mg/dL (<150)
[2024-03-26 13:18] LABS: Magnesium 2.1 mg/dL (1.6-2.3)
[2024-03-26 13:22] LABS: Iron 56 ug/dL (37-170)
[2024-03-26 13:23] LABS: LDL Cholesterol Direct 59 mg/dL
[2024-03-26 13:39] LABS: Percent Iron Saturation 16 % (20-50)
[2024-03-26 13:48] LABS: Creatine Kinase 156 U/L (30-135)
[2024-03-26 13:58] LABS: Thyroid Stimulating Hormone Reflex < 0.015 uIU/mL (0.465-4.68)
--- NOTE | 2024-03-26 14:12 | WPDNEURCNPN ---
Assessment and Plan Assessment and plan (1) Transient cerebral ischemia: Code(s): G45.9 - Transient cerebral ischemic attack, unspecified Status: Acute Plan Patient has history of endocrine problem the details of which were not clear to me. It was noted that she is on fludrocortisone and hydrocortisone. She does have previous history of migraine however she does not have recurrent headaches except recently she is having some headache for last 4 days. Slurring of his speech with confusional state does raise possibility of several possibilities including migraine related neurologic symptoms versus ischemic or ictal states. Hence I would suggest MRI of the brain, EEG, echocardiogram, lipid profile while we continue to observe her closely. CT scan of brain done initially did not show any abnormalities. I shall be glad to follow her with results of these. Consult date: 03/26/24 HPI: Ana Maria Alvarez is a 43 year old female who presented to the hospital with the symptoms of difficulty with speech lasting for several minutes during that she had some feeling of being confused. She was talking to her who directed her to go to emergency room because the way she was talking he became suspicious that something was seriously wrong since it was very much unlike her. The patient has been having headache for last 3 4 days in occipital and frontotemporal areas. She does have history of headache in the past but she states that she has somewhat grown out of those has been doing fairly well except the headaches he is having now. No recent history of febrile illness or physical trauma. 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 Yesterday she was not feeling well and had some cramps of the hands and legs. She states that she sometimes has nose on and off. She has a history of endocrine problems but did not have details of these any more than what she told me. She has to be on steroid Including 5 fludrocortisone and hydrocortisone. she denies any diplopia or difficulty speech or swallowing. No history of seizures or passing out spells. Review of Systems Review of Systems: All systems reviewed & are unremarkable except as noted in HPI and below PMFSH Past Medical History Medical History Anxiety Depression Hypertension Hypothyroidism Migraine Seizure Social History Social History Smoking status: Current every day smoker Tobacco type: e-cigarettes/vaping Alcohol intake: current Substance use: never Do You Feel Safe in your Home?: Yes Lack of Transportation: No Lack of Food: Never True Current Housing: I Have Housing Concerned About Future Housing: No Difficulty Paying Gas/Electric Bills: No Difficulty Paying for Meds: No Currently Unemployed: No Education: Associate Degree Difficulty w/ Childcare or Family Care: No Living arrangements: with family Gender identity (if verbalized by the patient): Female Spiritual care concerns: No Meds Home Medications and Allergies Home Medications Medication Instructions Recorded Confirmed Type atorvastatin 20 mg tablet 20 mg PO QHS 09/20/21 03/26/24 History hydrocortisone 5 mg tablet 15 mg PO QAM 09/20/21 03/26/24 History losartan 50 mg tablet 50 mg PO Q12H 09/20/21 03/26/24 History hydrocortisone 5 mg tablet 5 mg PO QHS 09/21/21 03/26/24 History bupropion HCl 150 mg 24 hr tablet, 150 mg PO QHS 03/26/24 03/26/24 History extended release desmopressin 0.1 mg tablet 0.1 mg PO Q12H 03/26/24 03/26/24 History dexamethasone sodium phosphate 4 4 mg IM ONCE PRN Allergic Reaction 03/26/24 03/26/24 History mg/mL injection solution dextroamphetamine-amphetamine 20 See Rx Instructions .Route .COMPLEX 03/26/24 03/26/24 History mg tablet estradiol 2 mg tablet 2 mg PO QAM 03/26/24 03/26/24 History fludrocortisone 0.1 mg tabl
[2024-03-26 14:27] LABS: Folic Acid 7.3 ng/mL (2.76->20)
[2024-03-26 14:41] LABS: Free T4 Free Thyroxine Reflex 1.24 ng/dL (0.78-2.19)
[2024-03-26] MEDS: PERFLUTREN LIPID MICROSPHERES 1.5 ML VIAL DILUTED TO 10 ML TOTAL VOLUME IV PUSH (15:18)
[2024-03-26 15:33] LABS: Total Triiodothyronine (T3) 1.16 NG/ML (0.97-1.69)
--- NOTE | 2024-03-26 16:26 | IVDEFINITY ---
Prior to administration of IV Definity the patient was educated on the risks and benefits of the imaging enhancing agent including potential adverse side effects. The patient verbalized understanding. Allergies were verified. No exclusion criteria were identified and at least one of the following inclusion criteria were met: 1) physician request, 2) patient technically difficult to image (per the [place] [employer]chocardi[employer] guidelines of two or more segments not discernable within the apical view), or 3) questionable left ventricular function. ?
[2024-03-26] MEDS: FERROUS SULFATE 325 MG TABLET DR PO (17:39)
[2024-03-26] MEDS: METOCLOPRAMIDE HCL INJ 10 MG/2 ML VIAL IV PUSH (18:12)
[2024-03-26] MEDS: diphenhydrAMINE HCl INJ 50 MG/ML VIAL IV PUSH (18:12)
[2024-03-26] MEDS: LACTATED RINGERS 1,000 ML 999 ML IV CONT (18:13)
[2024-03-26] MEDS: KETOROLAC 15 MG/ML VIAL (*BKC) IV PUSH (18:13)
[2024-03-26] MEDS: LORazepam INJ (*CRX) 2 MG/ML VIAL IV PUSH (18:46)
[2024-03-26 18:51] LABS: Glucose Point of Care 80 mg/dl (65-105)
--- NOTE | 2024-03-26 19:42 | PC.NURSE ---
Addendum entered by Ed Lyman RN 03/26/24 19:47: Patient now resting/sleeping in bed and at bedside. Patient appears very fatigued Original Note: At approximately 1840 called to room to find patient having a seizure-like episode. IV toradol, benadryl, and reglan was given IV for a migraine <30 mins prior. Patient reported having a reaction to compazine in the past so IV reglan was given cautiously- diluted in saline and pushed slowly per provider orders. at 1840 rapid was called when patient was carlos, face appeared flushed, and patient was almost falling out of bed. Zhou Tripathi came to bedside and ordered 2 mg IV ativan. Vitals charted. IV ativan overridden in Pyxis with house supevisor and administered.
[2024-03-26] MEDS: ATORVASTATIN 20 MG TABLET PO (20:06)
[2024-03-26] MEDS: HYDROCORTISONE 5 MG TABLET PO (20:06)
[2024-03-26] MEDS: buPROPion HCL XL (24 HR) 150 MG TABCR PO (20:06)
[2024-03-26] MEDS: DESMOPRESSIN ACETATE 0.1 MG TABLET PO (20:06)
[2024-03-26] MEDS: LOSARTAN POTASSIUM 50 MG TABLET PO (20:06)
[2024-03-26] MEDS: QUEtiapine FUMARATE 25 MG TABLET 150 MG PO (20:08)
[2024-03-26 21:02] LABS: Rheumatoid Factor < 12.0 IU/ML (<12)
[2024-03-26 21:17] LABS: Hemoglobin A1C 5.4 % (<5.7)
[2024-03-27] VITALS (9 sets, daily range): BP systolic 132–155; BP diastolic 75–90; PULSE 58–77; RESP 16–18; TEMP 36.4–36.8; O2SAT 99–100
[2024-03-27] MEDS: LEVOTHYROXINE SODIUM 100 MCG TABLET PO (06:08)
[2024-03-27 06:40] LABS: Basophils Absolute Auto 0.1 K/mm3 (0.0-0.1); Basophils Percent Auto 0.7 % (0.2-1.2); Eosinophils Absolute Auto 0.3 K/mm3 (0-0.3); Eosinophils Percent Auto 4.5 % (0-4.4); Hematocrit 33.6 % (37.0-47.0); Immature Granulocyte Absolute 0.02 K/mm3 (0.00-0.031); Immature Granulocyte Percent A 0.3 % (0-0.5); Lymphocytes Absolute Auto 2.33 K/mm3 (0.9-3.2); Lymphocytes Percent Auto 33.9 % (18.3-44.2); Mean Corpuscular HGB Conc 32.7 g/dl (32-36); Mean Corpuscular Hemoglobin 30.7 pg (26-34); Mean Corpuscular Volume 93.9 fl (80-100); Mean Platelet Volume 10.2 fl (7.4-10.4); Monocytes Absolute Auto 0.4 K/mm3 (0.1-0.6); Monocytes Percent Auto 5.8 % (2.6-8.5); Neutrophils Absolute Auto 3.8 K/mm3 (1.3-6.7); Neutrophils Percent Auto 54.8 % (45.5-73.1); Platelet Count Result 197 k/mm3 (150-375); Red Blood Count 3.58 M/mm3 (4.2-5.4); Red Cell Distribution Width 13.2 % (11.5-14.5); White Blood Count 6.9 K/mm3 (4.5-10.0)
[2024-03-27 06:57] LABS: Alanine Aminotransferase 18 U/L (6-35); Alkaline Phosphatase 54 U/L (38-126); Anion Gap 5 mmol/L (4-12); Aspartate Amino Transferase 26 U/L (14-36); Bilirubin,Total 0.4 mg/dL (0.2-1.3); Blood Urea Nitrogen 11 mg/dL (7-17); Calcium 7.9 mg/dL (8.4-10.2); Carbon Dioxide 26 mmol/L (22-30); Chloride 106 mmol/L (98-107); Estimated CRCL calculation 65 ml/min; Estimated Glomerular Filt Rate > 60; Glucose 82 mg/dL (65-110); Magnesium 1.9 mg/dL (1.6-2.3); Potassium 3.2 mmol/L (3.4-5.0); Sodium 137 mmol/L (137-145)
--- NOTE | 2024-03-27 07:58 | P.PNIM_ITS ---
Progress Note: A&P Assessment and Plan (1) Transient cerebral ischemia: Code(s): G45.9 - Transient cerebral ischemic attack, unspecified Status: Acute Assessment and Plan: 03/27/24: * Presented with headache, confusion, and slurred speech * Head CT negative * Chest x-ray negative * Head and neck CTA was * Brain MRI negative * Echo done on 03/26/2024 showed normal LV systolic function with an estimated EF of 65-70% and normal diastolic function. 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 Dilaudid canceled. Later in the evening patient received IV fluids, ketorolac, Benadryl and metoclopramide. Approximately 5-10 minutes after metoclopramide slow IV push patient had severe dystonic reaction necessitating rapid response to bedside and administration of 2 mg IV lorazepam. Metoclopramide added to patient allergy list. * Tried multiple medications without relief including Fentanyl, Dilaudid, Toradol, Ibuprofen 800 mg, Tylenol * Discussed with Neurology and they recommend Valium 10 mg IM to help relieve her headaches (4) Hypothyroidism: Code(s): E03.9 - Hypothyroidism, unspecified Status: Chronic Assessment and Plan: 03/27/24: * TSH less than 0.015 * Free T4 1.24, total T3 1.4 sodium * Will decrease Synthroid to 88 mcg daily (5) Hypertension: Code(s): I10 - Essential (primary) hypertension Status: Chronic Assessment and Plan: 03/27/24: * Blood pressures ranging 119/62 to 133/75 * Continue losartan (6) Anxiety: Code(s): F41.9 - Anxiety disorder, unspecified Status: Chronic Assessment and Plan: 03/27/24: * Patient has history of anxiety, posttraumatic stress disorder, ADHD, bipolar disorder * Continue Seroquel and lorazepam p.r.n. (7) Depression: Code(s): F32.9 - Major depressive disorder, single episode, unspecified Status: Chronic Assessment and Plan: 03/27/24: * Continue Wellbutrin * History of suicide attempt in the past. Time Spent With Patient Time with patient: Greater than 35 minutes Subjective Date/time seen: 03/27/24 07:58 Interval history: Interval history: This is a 43-year-old female with a significant past medical history of anxiety, depression, hypertension, hypothyroidism, migraine, posttraumatic stress disorder, bipolar disorder, attention deficit disorder, history of suicide attempt, seizure disorder, pituitary resection who presented to the hospital on 03/26/2024 with headache, confusion, slurred speech. Head CT was negative. Chest x-ray was negative. Head and neck CTA was negative. Brain MRI was negative. Initial labs showed a hemoglobin of 11.3, total CK 156, triglyceride 169, TSh <0.015, free T4 1.24, total T3 1.16, Rheumatoid factor < 12.0. Lupus screening pending. Neurology was consulted. 03/27/24: Patient denies any fe
--- NOTE | 2024-03-27 07:58 | PM.IMPN ---
Progress Note: A&P Assessment and Plan (1) Transient cerebral ischemia: Code(s): G45.9 - Transient cerebral ischemic attack, unspecified Status: Acute Assessment and Plan: 03/27/24: Presented with headache, confusion, and slurred speech Head CT negative Chest x-ray negative Head and neck CTA was Brain MRI negative Echo done on 03/26/2024 showed normal LV systolic function with an estimated EF of 65-70% and normal diastolic function. 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 Dilaudid canceled. Later in the evening patient received IV fluids, ketorolac, Benadryl and metoclopramide. Approximately 5-10 minutes after metoclopramide slow IV push patient had severe dystonic reaction necessitating rapid response to bedside and administration of 2 mg IV lorazepam. Metoclopramide added to patient allergy list. Tried multiple medications without relief including Fentanyl, Dilaudid, Toradol, Ibuprofen 800 mg, Tylenol Discussed with Neurology and they recommend Valium 10 mg IM to help relieve her headaches (4) Hypothyroidism: Code(s): E03.9 - Hypothyroidism, unspecified Status: Chronic Assessment and Plan: 03/27/24: TSH less than 0.015 Free T4 1.24, total T3 1.4 sodium Will decrease Synthroid to 88 mcg daily (5) Hypertension: Code(s): I10 - Essential (primary) hypertension Status: Chronic Assessment and Plan: 03/27/24: Blood pressures ranging 119/62 to 133/75 Continue losartan (6) Anxiety: Code(s): F41.9 - Anxiety disorder, unspecified Status: Chronic Assessment and Plan: 03/27/24: Patient has history of anxiety, posttraumatic stress disorder, ADHD, bipolar disorder Continue Seroquel and lorazepam p.r.n. (7) Depression: Code(s): F32.9 - Major depressive disorder, single episode, unspecified Status: Chronic Assessment and Plan: 03/27/24: Continue Wellbutrin History of suicide attempt in the past. Time Spent With Patient Time with patient: Greater than 35 minutes Subjective Date/time seen: 03/27/24 07:58 Interval history: Interval history: This is a 43-year-old female with a significant past medical history of anxiety, depression, hypertension, hypothyroidism, migraine, posttraumatic stress disorder, bipolar disorder, attention deficit disorder, history of suicide attempt, seizure disorder, pituitary resection who presented to the hospital on 03/26/2024 with headache, confusion, slurred speech. Head CT was negative. Chest x-ray was negative. Head and neck CTA was negative. Brain MRI was negative. Initial labs showed a hemoglobin of 11.3, total CK 156, triglyceride 169, TSh <0.015, free T4 1.24, total T3 1.16, Rheumatoid factor < 12.0. Lupus screening pending. Neurology was consulted. 03/27/24: Patient denies any fever, chills, nausea, vomiting, diarrhea, abdominal pain, chest pain, shortness of breath. Patient endorses 7/10 headache that feels like it is behind the eyes and temples. EEG was negative. Patient states that her speech is much better today. Review of Systems Review of Systems: All systems reviewed & are unremarkable except as noted in HPI and below Constitutional: Constitutional: Reports as per HPI and Reports no additional constitutional complai
[2024-03-27] MEDS: DESMOPRESSIN ACETATE 0.1 MG TABLET PO (09:09)
[2024-03-27] MEDS: ASPIRIN 81 MG ENTERIC TABLET PO (09:09)
[2024-03-27] MEDS: FERROUS SULFATE 325 MG TABLET DR PO ×2 (09:09→17:24)
[2024-03-27] MEDS: estradioL 1 MG TABLET 2 MG PO (09:09)
[2024-03-27] MEDS: HYDROCORTISONE 5 MG TABLET 15 MG PO (09:09)
[2024-03-27] MEDS: FLUDROCORTISONE ACETATE 0.1 MG TABLET PO (09:10)
[2024-03-27] MEDS: LOSARTAN POTASSIUM 50 MG TABLET PO (09:10)
--- NOTE | 2024-03-27 10:46 | WPDNEUROLOGY ---
Neurology EEG Report General Information Date of Study: 03/27/24 TEST EEG DIAGNOSIS TIA CONDITION OF RECORDING awake, drowsy, And sleep. EEG NUMBER [id number] CLINICAL HISTORY Patient was at work yesterday when she had a spell of slurred speech and confusion which lasted for 30minutes or so. At this time she feels very fatigued. EEG DESCRIPTION Basic resting occipital frequency consists of low to medium voltage 9 to 11 hertz per 2nd alpha admixed with low-voltage 15 to 18 hertz per 2nd beta. Good ash posterior gradient is noted. Low-voltage beta activity seen diffusely admixed with waxing and waning posterior alpha rhythm during drowsiness. Bilateral symmetrical sleep activity seen with symmetrical sleep spindles. Hyperventilation not done. Photic stimulation not done. Non paroxysmal. Nonfocal. Nonlateralizing. IMPRESSION Normal record.
[2024-03-27] MEDS: IBUPROFEN 400 MG TABLET 800 MG PO (13:45)
[2024-03-27] MEDS: HYDROcodone/acetaminophen (*CRX) 5-325 MG TABLET 1 TAB PO (17:24)
--- NOTE | 2024-03-27 17:26 | PM.DS ---
DS: Admitting Diagnosis Discharge Date 03/27/24 Admitting Diagnosis Transient cerebral ischemia Adrenal cortex insufficiency Migraine Hypothyroidism Hypertension Anxiety Depression DS: Discharge Diagnosis Discharge Diagnosis (1) Transient cerebral ischemia: Code(s): G45.9 - Transient cerebral ischemic attack, unspecified Status: Acute (2) Adrenal cortex insufficiency: Code(s): E27.40 - Unspecified adrenocortical insufficiency Status: Chronic (3) Migraine: Code(s): G43.909 - Migraine, unspecified, not intractable, without status migrainosus Status: Chronic (4) Hypothyroidism: Code(s): E03.9 - Hypothyroidism, unspecified Status: Chronic (5) Hypertension: Code(s): I10 - Essential (primary) hypertension Status: Chronic (6) Anxiety: Code(s): F41.9 - Anxiety disorder, unspecified Status: Chronic (7) Depression: Code(s): F32.9 - Major depressive disorder, single episode, unspecified Status: Chronic DS: Summary Hospital Course Reason for hospitalization: Transient cerebral ischemia Adrenal cortex insufficiency Migraine Hypothyroidism Hypertension Anxiety Depression Hospital Course: This is a 43-year-old female with a significant past medical history of anxiety, depression, hypertension, hypothyroidism, migraine, posttraumatic stress disorder, bipolar disorder, attention deficit disorder, history of suicide attempt, seizure disorder, pituitary resection who presented to the hospital on 03/26/2024 with headache, confusion, slurred speech. Head CT was negative. Chest x-ray was negative. Head and neck CTA was negative. Brain MRI was negative. Initial labs showed a hemoglobin of 11.3, total CK 156, triglyceride 169, TSh <0.015, free T4 1.24, total T3 1.16, Rheumatoid factor < 12.0. Lupus screening pending. Neurology was consulted however workup was negative. EEG was negative. She was given a 1 time dose 10 mg IM volume per neurology recommendation. She then requesting to be discharged. We went ahead and allowed her to be discharged and instructed her to follow-up with her primary care physician in 1 week. She is also to follow up with her freight representative in the next 2 weeks. Final diagnosis: Migraine Status at Discharge Cognitive/behavioral status at discharge: Alert oriented x4 Functional status at discharge: independent ambulation Overall status at discharge: patient is progressing back to baseline Time Spent with Patient Time attestation: Total time spent providing and/or coordinating discharge services: Time spent: Greater than 30 minutes Exam Narrative: General: In no acute distress, well nourished Head: atraumatic, no encephalopathy Eyes: EOMI, PERRLA, sclera clear ENT: moist mucous membranes, nasal passages clear Neck: supple, no JVD, no adenopathy, trachea midline Cardiac: Normal S1 and S2. No murmur, gallops or friction rubs, peripheral pulses intact. Respiratory: Lungs clear to auscultation, no adventitious lung sounds, currently on room air Gastrointestinal: soft, non-distended, non-tender, normoactive bowel sounds. : voiding without difficulty. Extremities: moves all extremities well, no edema, good ROM, strength 5/5 Skin: clean, dry, intact. No wounds or lesions. Neuro: Alert and oriented x4, cranial nerves intact, no neuro deficits. Psych: normal mood, normal affect, interactive DS: Data Data Completed and Pending Completed studies during hospitalization: Head CT Chest x-ray Head/neck CTA Brain MRI Pending studies at discharge: None Labs on day of discharge: Labs from last 24 hours 03/27/24 03/26/24 03/26/24 06:14 20:37 18:39 WBC 6.9 RBC 3.58 L Hgb 11.0 L Hct 33.6 L MCV 93.9 MCH 30.7 MCHC 32.7 RDW 13.2 Plt Count 197 MPV 10.2 Immature Gran % (Auto) 0.3 Neut % (Auto) 54.8 Lymph % (Auto) 33.9 Cook % (Auto) 5.8 Eos % (Auto) 4.5 H Baso %
[2024-03-27] MEDS: diazePAM INJ (*CRX) 10 MG/2 ML SYRINGE IM (17:36)
[2024-03-27 18:38] LABS: Lupus dRVVT Screen 35 sec (< OR = 45); PTT-LA Screen 33 sec (< OR = 40)
[2024-03-28 11:40] LABS: PTT-LA Additional Testing Not Indicated
== END 2024-03-27 18:20 | disposition home or self-care (01) ==
LOC: ANHED 09:19 → ANH2MED 10:09
PROVIDERS: Emergency Medicine; Nurse Practitioner; Admitting Provider Internal Medicine; Emergency Provider Emergency Medicine; Visit Provider Internal Medicine
DX: G45.9 Transient cerebral ischemic attack, unspecified (principal); G43.909 Migraine, unspecified, not intractable, without status migrainosus; I10 Essential (primary) hypertension; E03.9 Hypothyroidism, unspecified; G40.909 Epilepsy, unspecified, not intractable, without status epilepticus; F90.9 Attention-deficit hyperactivity disorder, unspecified type; E24.9 Cushing's syndrome, unspecified; F41.9 Anxiety disorder, unspecified; F32.A Depression, unspecified; F17.290 Nicotine dependence, other tobacco product, uncomplicated; Z79.899 Other long term (current) drug therapy
CPT/HCPCS: 36415; 70450; 70496; 70498; 70551; 71045; 80053; 80061; 81025; 82550; 82607; 82728; 82746; 82948; 83036; 83540; 83550; 83735; 84439; 84443; 84480; 84484; 85025; 85610; 85613; 85730; 86430; 93005; 95816; 96372; 96374; 96375; 97161; 97165; 99285; A9270; C8929; G0378; J1170; J1200; J1885; J2060; J2765; J3010; J3360; J7120; Q9957; Q9967

== ENCOUNTER 2024-07-05 11:09 | Emergency (ER) | payer OTHER, SELFPAY ==
[2024-07-05 11:19] VITALS: BP 110/97; PULSE 113; RESP 20; TEMP 36.2; O2SAT 100
--- NOTE | 2024-07-05 11:27 | ED.NAVMDI ---
HPI - Nausea/Vomiting/Diarrhea General Chief complaint: Nausea/Vomiting/Diarrhea Stated complaint: headache / vomiting Time Seen by Provider: 07/05/24 11:10 Source: patient Mode of arrival: ambulatory Limitations: no limitations History of Present Illness HPI Narrative: Patient is a 43-year-old female that presents with fatigue that started 5 days ago followed by headache, chest tightness and nausea. Three days ago she started vomiting, up to 3 times a day. Two days ago she broke out in hives in called her PCP and was given Benadryl and hydroxyzine which resolved rash. The last 2 days she has also had abdominal pain, fever of 102.6 and constipation with rectal bleeding. Denies any congestion, sore throat, cough, ear pain. Patient has history of adrenal insufficiency, migraine, hypertension, TIA this past March. Has taken some Advil cold and flu. States she feels she is being poisoned. Reports she called PCP and was told to come to urgent care Related Data Home Medications Medication Instructions Recorded Confirmed atorvastatin 20 mg tablet 20 mg PO QHS 09/20/21 07/05/24 hydrocortisone 5 mg tablet 15 mg PO QAM 09/20/21 03/26/24 losartan 50 mg tablet 50 mg PO Q12H 09/20/21 07/05/24 hydrocortisone 5 mg tablet 5 mg PO QHS 09/21/21 03/26/24 bupropion HCl 150 mg 24 hr tablet, 150 mg PO QHS 03/26/24 07/05/24 extended release desmopressin 0.1 mg tablet 0.1 mg PO Q12H 03/26/24 07/05/24 dexamethasone sodium phosphate 4 4 mg IM ONCE PRN Allergic Reaction 03/26/24 03/26/24 mg/mL injection solution dextroamphetamine-amphetamine 20 See Rx Instructions .Route .COMPLEX 03/26/24 07/05/24 mg tablet estradiol 2 mg tablet 2 mg PO QAM 03/26/24 03/26/24 fludrocortisone 0.1 mg tablet 0.1 mg PO QAM 03/26/24 07/05/24 levothyroxine 88 mcg tablet 100 mcg PO QAM 03/26/24 07/05/24 lorazepam 0.5 mg tablet 0.5 mg PO TID PRN Anxiety 03/26/24 07/05/24 ondansetron 4 mg disintegrating 4 mg PO Q6H 03/26/24 03/26/24 tablet progesterone micronized 100 mg 100 mg PO QAM 03/26/24 07/05/24 capsule quetiapine 100 mg tablet 150 mg PO QHS 03/26/24 07/05/24 Allergies Allergy/AdvReac Type Severity Reaction Status Date / Time adhesive tape Allergy Blister Verified 07/05/24 11:32 chlorhexidine Allergy Hives Verified 07/05/24 11:32 prochlorperazine Allergy Unknown Verified 07/05/24 11:32 [From Compazine] metoclopramide AdvReac Severe Agitated Verified 07/05/24 11:32 Review of Systems Review of Systems: All systems reviewed & are unremarkable except as noted in HPI and below Constitutional: Constitutional: Denies body ache(s), Denies chills, Reports fatigue, Reports fever(s), Reports headache(s), Denies malaise and Denies weakness Eyes: Eyes: Denies blurry vision, Denies irritation and Denies loss of vision ENT: Denies otalgia, Denies headache(s), Denies nasal discharge, Denies sinus pain and Denies sore throat Cardiovascular: Cardiovascular: Reports chest pain, Denies irregular heart rhythm and Denies dyspnea Respiratory: Respiratory: Denies dyspnea Gastrointestinal: Gastrointestinal: Reports abdominal pain, Denies melena, Reports hematochezia, Reports constipation, Denies diarrhea, Reports nausea and Reports vomiting Musculoskeletal: Musculoskeletal: Denies back pain, Denies myalgias and Denies arthralgias Integumentary/Breasts: Skin/Breast: Reports pruritus and Reports rash Neurologic: Reports headache(s), Denies loss of vision and Denies weakness Psychiatric: Psychiatric: Reports no additional psychiatric complaints Endocrine: Endocrine: Reports fatigue PMFSH Past Medical History Medical History Anxiety Depression Hypertension Hypothyroidism Migraine Seizure Social History Social History Smoking status: Current every day smoker Tobacco type: e-cigarettes/vaping Alcohol intake: current Substance use: never Do You Feel Safe in your Home?: Yes Lack of Transportation: No Lack of Food: Never True Current Housing: I Have Housing Concerned About Future Housing: No Difficulty Paying Gas/Electric Bills: No Difficulty Paying for Meds: No Currently Unemployed: No Education: Associate Degree Difficulty w/ Childcare or Family Care: No Living arrangements: with family Gender identity (if verbalized by the patient): Female Spiritual care concerns: No Comments At time of signature, agree with nursing past medical, surgical, social and family history. There is no relevant family history pertinent to the presenting complaint. Exam Const: General: cooperative, healthy appearing, comfortable, no acute distress and well nourished Nutritional Appearance: well nourished Orientation/consciousness: patient oriented x3 Limitations: no limitations HENMT: Head: normal to inspection, normocephalic and atraumatic Ears: hearing grossly normal bilaterally and external ears normal Face/Nose/Sinus: Normal external nose present, normal facial exam and face symmetric Face and sinus: normal facial exam and face symmetric Mouth: Yes lip normal Eyes: General: appearance normal, both eyes and all related structures Alignment and Position: alignment normal and position normal Periorbital: periorbital findings normal Eyelids: eyelids normal Pupils: Equal, round and reactive pupils present EOM: EOMs intact bilaterally Neck: Neck: normal visual inspection, full ROM and supple Chest: Chest palpation & inspection: normal inspection of the chest Resp: Effort & Inspection: normal respiratory effort and able to speak in complete sentences Auscultation: clear to auscultation bilaterally Cardio: Rate: regular rate Rhythm: regular rhythm Heart sounds: S1 normal heart sound present and S2 normal heart sound present GI: Inspection: normal to inspection GI Palp: Yes abdominal tenderness, Yes Soft to palpation and No Guarding due to palpation present (GI) Skin: General skin exam: normal color and no rashes or lesions noted Neuro: General: patient oriented x3 and moves all extremities Cranial nerves: Yes Equal, round and reactive pupils present Speech: normal speech Gait exam (Neuro): Normal gait present Extrem: General: normal to inspection, full ROM and no edema Psych: Appearance: grossly normal and well kempt Mental Status: mental status grossly normal Speech and movement: Normal speech and movement present Affect: normal affect Attitude: cooperative Thought process: Normal thought process present Course Course Emergency Course: Patient being transferred to [facility] for further workup and evaluation. Patient is need labs, imaging and pain management. Portions of this record may have been created with voice recognition software Level of Care: Express Care Visit Vital Signs Vital signs: Reviewed Transfer Transfered to: [place] Transportation: Other (Private auto) Transfer rationale: Fatigue, abdominal pain, chest tightness, vomiting, constipation, rectal bleeding Accepting physician: Amanda GARRIDO MDM - Nausea/Vomiting/Diarrhea MDM Narrative Medical decision making narrative: Patient being transferred to [facility] for further workup and evaluation. Patient is need labs, imaging and pain management. Differential Diagnosis Differential diagnosis: Likely traveler's diarrhea, food poisoning, gastroenteritis, clostridium difficile infection, dehydration and other (Viral infection, constipation, diverticulitis) Medical Records Attestation: I reviewed the patient's medical records. Discharge Plan Discharge Clinical Impression: Abdominal pain, Fatigue, Nausea & vomiting Patient Disposition: Acute Care Hospital Condition: Stable Prescriptions: No Action lorazepam 0.5 mg tablet 0.5 mg PO TID PRN (Reason: Anxiety) dextroamphetamine-amphetamine 20 mg tablet See Rx Instructions .ROUTE .COMPLEX Rx Instructions: patient states she takes 30 mg in AM, 15mg at lunch, and 15mg in the afternoon estradiol 2 mg tablet 2 mg PO QAM dexamethasone sodium phosphate 4 mg/mL solution 4 mg IM ONCE PRN (Reason: Allergic Reaction) fludrocortisone 0.1 mg tablet 0.1 mg PO QAM progesterone micronized 100 mg capsule 100 mg PO QAM bupropion HCl 150 mg tablet extended release 24 hr 150 mg PO QHS quetiapine 100 mg tablet 150 mg PO QHS levothyroxine 88 mcg tablet 100 mcg PO QAM ondansetron 4 mg tablet,disintegrating 4 mg PO Q6H desmopressin 0.1 mg tablet 0.1 mg PO Q12H losartan 50 mg tablet 50 mg PO Q12H hydrocortisone 5 mg tablet 15 mg PO QAM atorvastatin 20 mg tablet 20 mg PO QHS hydrocortisone 5 mg tablet 5 mg PO QHS Follow-up/Referrals: Jatinder,MD Yuriy [Primary Care Provider] - Time of Disposition: 11:45
== END 2024-07-05 11:47 | disposition short-term general hospital (02) ==
PROVIDERS: Emergency Provider Nurse Practitioner Family; PCP Family Medicine
DX: R10.9 Unspecified abdominal pain (principal); R53.83 Other fatigue; R11.2 Nausea with vomiting, unspecified; F17.290 Nicotine dependence, other tobacco product, uncomplicated; I10 Essential (primary) hypertension; E03.9 Hypothyroidism, unspecified; E27.40 Unspecified adrenocortical insufficiency; F41.9 Anxiety disorder, unspecified; F32.A Depression, unspecified; Z86.73 Personal history of transient ischemic attack (TIA), and cerebral infarction without residual deficits
CPT/HCPCS: 99212; G0463

== ENCOUNTER 2024-07-05 12:11 | Emergency (ER) | payer OTHER, SELFPAY ==
--- NOTE | ~2024-07-05 | XR_ITS ---
EXAMINATION: XR chest 2V DATE: 07/05/2024 15:17 INDICATION: Chest pain and congestion TECHNIQUE: PA and lateral views of the chest were obtained. COMPARISON: Chest radiograph dated 03/26/2024 and 11/05/2011 and 05/29/2008 FINDINGS: The lungs are clear with no focal airspace opacities, pulmonary edema, pleural effusion or pneumothor ax. The cardiomediastinal silhouette is normal. Cholecystectomy clips in right upper quadrant. Chroni c mixed lytic and sclerotic lesion at the mid right humeral diaphysis which appears to been present d ating back to radiograph dated 05/29/2008 consistent with a benign etiology most likely either fibrou s dysplasia or chronic nonossifying fibroma. IMPRESSION: 1. No acute cardiopulmonary disease. Reviewed, dictated and finalized at location B. [facility]
[2024-07-05 12:12] VITALS: BP 125/83; PULSE 85; RESP 16; TEMP 36.4; O2SAT 100
--- NOTE | 2024-07-05 14:45 | ED.ABDPAIN ---
HPI - Abdominal Pain General Chief Complaint: Abdominal Pain Stated Complaint: abd pain, fatigue, fever Time Seen by Provider: 07/05/24 14:30 Focused HPI: Patient is a 43-year-old female who presents to the ER with a 5 day history of headache, dizziness, sneezing, chest pain, hives, emesis, constipation, abdominal pain. She reports she started experiencing lethargy on Tuesday and stayed in bed all day on Tuesday. Since then patient's symptoms have all worsened. She denies coughing or fevers. Patient reports she has a history of adrenal insufficiency and takes daily steroids, but has been able to take those due to emesis. GENERAL: Well-appearing, well-nourished, and in no acute distress. HEAD: Normocephalic, atraumatic. CHEST: Clear to auscultation. ?No respiratory distress. HEART: Regular rate and rhythm.? NEURO: ?Alert and oriented x3. Patient screened in triage and initial orders placed.? ?Additional care and disposition to be based upon?diagnostic testing and treatment. Related Data Home Medications Medication Instructions Recorded Confirmed atorvastatin 20 mg tablet 20 mg PO QHS 09/20/21 07/05/24 hydrocortisone 5 mg tablet 15 mg PO QAM 09/20/21 03/26/24 losartan 50 mg tablet 50 mg PO Q12H 09/20/21 07/05/24 hydrocortisone 5 mg tablet 5 mg PO QHS 09/21/21 03/26/24 bupropion HCl 150 mg 24 hr tablet, 150 mg PO QHS 03/26/24 07/05/24 extended release desmopressin 0.1 mg tablet 0.1 mg PO Q12H 03/26/24 07/05/24 dexamethasone sodium phosphate 4 4 mg IM ONCE PRN Allergic Reaction 03/26/24 03/26/24 mg/mL injection solution dextroamphetamine-amphetamine 20 See Rx Instructions .Route .COMPLEX 03/26/24 07/05/24 mg tablet estradiol 2 mg tablet 2 mg PO QAM 03/26/24 03/26/24 fludrocortisone 0.1 mg tablet 0.1 mg PO QAM 03/26/24 07/05/24 levothyroxine 88 mcg tablet 100 mcg PO QAM 03/26/24 07/05/24 lorazepam 0.5 mg tablet 0.5 mg PO TID PRN Anxiety 03/26/24 07/05/24 ondansetron 4 mg disintegrating 4 mg PO Q6H 03/26/24 03/26/24 tablet progesterone micronized 100 mg 100 mg PO QAM 03/26/24 07/05/24 capsule quetiapine 100 mg tablet 150 mg PO QHS 03/26/24 07/05/24 Allergies Allergy/AdvReac Type Severity Reaction Status Date / Time adhesive tape Allergy Blister Verified 07/05/24 11:32 chlorhexidine Allergy Hives Verified 07/05/24 11:32 prochlorperazine Allergy Unknown Verified 07/05/24 11:32 [From Compazine] metoclopramide AdvReac Severe Agitated Verified 07/05/24 11:32 [facility] Past Medical History Medical History Anxiety Depression Hypertension Hypothyroidism Migraine Seizure Social History Social History Smoking status: Current every day smoker Tobacco type: e-cigarettes/vaping Alcohol intake: current Substance use: never Do You Feel Safe in your Home?: Yes Lack of Transportation: No Lack of Food: Never True Current Housing: I Have Housing Concerned About Future Housing: No Difficulty Paying Gas/Electric Bills: No Difficulty Paying for Meds: No Currently Unemployed: No Education: Associate Degree Difficulty w/ Childcare or Family Care: No Living arrangements: with family Gender identity (if verbalized by the patient): Female Spiritual care concerns: No Course Vital Signs Vital signs: Vital Signs Temperature 36.4 C 07/05/24 12:12 Pulse Rate 85 07/05/24 12:12 Respiratory Rate 16 07/05/24 12:12 Blood Pressure 125/83 07/05/24 12:12 Pulse Oximetry 100 07/05/24 12:12 Temperature 36.4 C 07/05/24 12:12 Pulse Rate 85 07/05/24 12:12 Respiratory Rate 16 07/05/24 12:12 Blood Pressure 125/83 07/05/24 12:12 Pulse Oximetry 100 07/05/24 12:12 MDM - Abdominal Pain Imaging Data Radiologist's impression: ITS Impressions Chest X-Ray 07/05/24 15:18 IMPRESSION: 1. No acute cardiopulmonary disease. Discharge Plan Discharge Clinical Impression: Viral infection Patient Disposition: Elopement After Seen by Prov Condition: Stable Instructions: Antibiotic Form Prescriptions: No Action lorazepam 0.5 mg tablet 0.5 mg PO TID PRN (Reason: Anxiety) dextroamphetamine-amphetamine 20 mg tablet See Rx Instructions .ROUTE .COMPLEX Rx Instructions: patient states she takes 30 mg in AM, 15mg at lunch, and 15mg in the afternoon estradiol 2 mg tablet 2 mg PO QAM dexamethasone sodium phosphate 4 mg/mL solution 4 mg IM ONCE PRN (Reason: Allergic Reaction) fludrocortisone 0.1 mg tablet 0.1 mg PO QAM progesterone micronized 100 mg capsule 100 mg PO QAM bupropion HCl 150 mg tablet extended release 24 hr 150 mg PO QHS quetiapine 100 mg tablet 150 mg PO QHS levothyroxine 88 mcg tablet 100 mcg PO QAM ondansetron 4 mg tablet,disintegrating 4 mg PO Q6H desmopressin 0.1 mg tablet 0.1 mg PO Q12H losartan 50 mg tablet 50 mg PO Q12H hydrocortisone 5 mg tablet 15 mg PO QAM atorvastatin 20 mg tablet 20 mg PO QHS hydrocortisone 5 mg tablet 5 mg PO QHS Follow-up/Referrals: Jatinder,MD Yuriy [Primary Care Provider] -
--- NOTE | 2024-07-05 16:44 | PC.NURSE ---
PT LEFT AFTER SEEING COMMUNICATION SPECIALIST D/T WAIT TIME
== END 2024-07-05 18:40 | disposition left against medical advice (07) ==
PROVIDERS: Emergency Provider Registered Nurse; PCP Family Medicine
DX: B34.9 Viral infection, unspecified (principal); I10 Essential (primary) hypertension; E03.9 Hypothyroidism, unspecified; F41.9 Anxiety disorder, unspecified; F32.A Depression, unspecified; F17.290 Nicotine dependence, other tobacco product, uncomplicated; Z79.899 Other long term (current) drug therapy
CPT/HCPCS: 71046; 99283